=== PATIENT | male | born 1965 | race American Indian/Alaskan Native ===

== ENCOUNTER → 2020-07-23 | Day surgery (SDC) | payer OTHER ==
[2020-07-17 11:28] LABS: BASOPHIL % 1.2 % (0.2-1.5); PLATELET COUNT 251 x10^3mcL (152-348); RED CELL DISTRIBUTION WIDTH 13.3 % (12.1-16.2)
[2020-07-17 15:20] LABS: rbc morphology (normal/abnorm) NORMAL (NORMAL)
[~2020-07-23] VITALS: Ht 182.9 cm; Wt 83.0 kg
[2020-07-23] VITALS (10 sets, daily range): BP systolic 120–148; BP diastolic 83–102
[~2020-07-23] MED LIST: BRILINTA90 M1 PO; COREG6.25 M1 PO; ECO81 PO; FAMOTIDINE20 M1 PO; HORIZANT300 MG PO; HUMALOG100 U/ML SC; LANTUS100 U/ML SC; LIPITOR80 MG PO; ZES10 PO
--- NOTE | 2020-07-23 07:10 | NUR ---
ADMIT TO OPS FOR HEART CATH. ORIENT TO UNIT AND PLAN OF CARE. NPO SINCE 07/22/20 1700. AYAAN WIPES COMPLETED. BILATERAL GROIN AND WRIST SKIN PREP COMPLETED. REPORTS "PAIN 7/10 FOR LAST TWO WEEKS RADIATES TO LEFT ARM AND LEG." DENIES NAUSEA AT THIS TIME. CONSENT REVIEWED AND VERBALIZED UNDERSTANDING OF PROCEDURE. PT AMB WITH CANE. DRESSING JULES WRAP TO RIGHT KNEE FROM PREVIOUS FALL "ON TRAIN TRACKS". ALSO REPORTS "HAD ABD SURGERY NEEDS BINDER TO HOLD STOMACH IN." ABD BINDER APPLIED. PT IS DIABETIC. FBS= 246MG. PT ON INSULIN HUMALOG AND LANTUS. LAST DOSES 07/22/20. TOOK AM LISINOPRIL 20MG PO AT 0500 WITH SIP OF WATER. SIDE RAILS UP X2. CALL LIGHT IN REACH. WILL CONTINUE TO MONITOR.
--- NOTE | 2020-07-23 08:30 | NUR ---
MULTIPLE ATTEMPTS TO START IV LINE, LINES INFILTRATATED. ABLE TO ESTABLISH #20 ANGIO RIGHT HAND FLUSHED AND PATENT BY NUR1. STAT PREOP LABS DRAWN AWAITING RESULTS. PT ALLERGIC TO CONTRAST DYE, ARMBAND APPLIED.
--- NOTE | 2020-07-23 08:50 | NUR ---
PT TAKEN TO HEMODIALYSIS PATIENT CARE SPECIALIST VIA [facility].
[2020-07-23 09:45] LABS: CALCIUM 9.7 mg/dL (8.5-10.1); CARBON DIOXIDE 27.2 mmol/L (21-32); CHLORIDE SERUM 102 mmol/L (98-107); CREATININE SERUM 1.3 mg/dL (0.7-1.3); GFR1 > 60 mL/min; GLUCOSE SERUM 254 mg/dL (74-106); POTASSIUM SERUM 4.7 mmol/L (3.5-5.1); SODIUM SERUM 139 mmol/L (136-145)
--- NOTE | 2020-07-23 10:15 | NUR ---
PT RETURNED TO OPS VIA GURNEY FROM FLIGHT ATTENDANT/INFLIGHT SUPERVISOR DROWSY BUT AWAKE AND ALERT. VITAL SIGNS STABLE. SEE FLOWSHEET. CONTINUES TO REPORT SOME "CHEST PAIN LIKE BEFORE". 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 RESP 18 EVEN. PULSE OX 100% RA. RIGHT GROIN TEGADERM INTACT. NO BLEEDING OR HEMATOMA NOTED. PEDAL PULSES PRESENT. DENIES NUMBNESS OR TINGLING TO RLE. IV CONTINUES 75CC/HR ORDERED. SIDE RAILS UP X2. CALL LIGHT IN REACH.
--- NOTE | 2020-07-23 11:30 | NUR ---
VITAL SIGNS AND CIRCULATION CHECKS REMAIN STABLE. SEE FLOWSHEET. NO BLEEDING RIGHT GROIN OR HEMATOMA NOTED, PULSES PRESENT. CALL LIGHT IN REACH. BREAKFAST SERVED. CALL LIGHT IN REACH.
--- NOTE | 2020-07-23 15:00 | NUR ---
VITAL SIGNS REMAIN STABLE WITH CIRCULATION CHECKS STABLE. SEE VS FLOWSHEET. PHYSICAL THERAPY HERE TO REVIEW CARDIAC REHAB INSTRUCTIONS AND AMB WITH CANE. TOLERATED WELL, BACK TO [facility]. RIGHT GROIN SITE REMAINS STABLE NO HEMATOMA.
--- NOTE | 2020-07-23 16:30 | NUR ---
VITAL SIGNS AND CIRCULATION CHECKS TO RLE STABLE. NO HEMATOMA NOTED RIGHT GROIN DRESSING TEGADERM CDI. PULSES PRESENT. REVIEWED DISCHARGE INSTRUCTIONS RELATED TO DIET, ACTIVITY, MEDICATIONS AND FOLLOWUP APPOINTMENT INCLUDING PCP AND CARDIAC REHAB RECOMMENDATION BY DR SANCHEZ. PT VERBALIZED UNDERSTANDING. IV REMOVED CATH TIP INTACT. ARMBAND REMOVED. PT DC VIA WHEELCHAIR WITH BELONGINGS TO PRIVATE CAR.
== END | disposition home or self-care (01) ==
LOC: OR 07:10
PROVIDERS: ATTEND Internal Medicine Geriatric Medicine
DX: I25.10 Atherosclerotic heart disease of native coronary artery without angina pectoris (principal); R07.9 Chest pain, unspecified; I10 Essential (primary) hypertension; H40.9 Unspecified glaucoma; E11.9 Type 2 diabetes mellitus without complications; R56.9 Unspecified convulsions; M19.90 Unspecified osteoarthritis, unspecified site; Z79.899 Other long term (current) drug therapy; Z79.84 Long term (current) use of oral hypoglycemic drugs; Z86.73 Personal history of transient ischemic attack (TIA), and cerebral infarction without residual deficits; Z20.828 Contact with and (suspected) exposure to other viral communicable diseases
CPT/HCPCS: CLHCL; J1200; J1644; J2001; J2250; J2405; J2930; J3010; Q9967; U0003

== ENCOUNTER 2020-07-27 07:05 | Inpatient (IN) | payer OTHER ==
[~2020-07-27] VITALS: Ht 182.9 cm; Wt 82.1 kg
[2020-07-27 07:13] VITALS: Ht 182.9 cm; Wt 82.1 kg
[2020-07-27 08:25] LABS: BASOPHIL % 0.7 % (0.2-1.5); PLATELET COUNT 187 x10^3mcL (152-348); RED CELL DISTRIBUTION WIDTH 13.2 % (12.1-16.2)
[2020-07-27 08:27] LABS: rbc morphology (normal/abnorm) NORMAL (NORMAL)
[2020-07-27 08:48] LABS: CALCIUM 9.9 mg/dL (8.5-10.1); CARBON DIOXIDE 29.2 mmol/L (21-32); CHLORIDE SERUM 101 mmol/L (98-107); CREATININE SERUM 1.1 mg/dL (0.7-1.3); GFR1 > 60 mL/min; GLUCOSE SERUM 300 mg/dL (74-106); SODIUM SERUM 136 mmol/L (136-145)
[2020-07-27 08:53] LABS: ALBUMIN 3.4 g/dL (3.4-5.0); ALKALINE PHOSPHATASE 154 U/L (46-116); ALT/SGPT 28 U/L (16-63); AST/SGOT 14 U/L (15-37); BILIRUBIN TOTAL 0.3 mg/dL (0.20-1.00); TOTAL PROTEIN, SERUM 6.6 g/dL (6.4-8.2)
[2020-07-27] MEDS ORDERED: HORIZANT300 MG PO (13:25)
[2020-07-27] MEDS ORDERED: ZES10 PO (13:26)
[2020-07-27] MEDS ORDERED: FAMOTIDINE20 M1 PO (13:26)
[2020-07-27] MEDS ORDERED: BRILINTA90 M1 PO (13:27)
[2020-07-27] MEDS ORDERED: COREG6.25 M1 PO (13:27)
[2020-07-27] MEDS ORDERED: HUMALOG100 U/ML SC (13:28)
[2020-07-27] MEDS ORDERED: LANTUS100 U/ML SC (13:28)
[2020-07-28 00:48] VITALS: BP 123/80
[2020-07-28 04:51] VITALS: BP 114/77
[2020-07-28 07:33] LABS: BASOPHIL % 0.5 % (0.2-1.5); PLATELET COUNT 173 x10^3mcL (152-348); RED CELL DISTRIBUTION WIDTH 13.1 % (12.1-16.2)
[2020-07-28 09:07] VITALS: BP 108/63
[2020-07-28 09:53] LABS: rbc morphology (normal/abnorm) NORMAL (NORMAL)
[2020-07-28 11:05] LABS: ALKALINE PHOSPHATASE 101 U/L (46-116); ALT/SGPT 27 U/L (16-63); AST/SGOT 16 U/L (15-37); BILIRUBIN TOTAL 0.34 mg/dL (0.20-1.00); CALCIUM 8.3 mg/dL (8.5-10.1); CARBON DIOXIDE 26.1 mmol/L (21-32); CHLORIDE SERUM 103 mmol/L (98-107); CREATININE SERUM 0.8 mg/dL (0.7-1.3); GFR1 > 60 mL/min; GLUCOSE SERUM 197 mg/dL (74-106); POTASSIUM SERUM 3.8 mmol/L (3.5-5.1); SODIUM SERUM 137 mmol/L (136-145)
[2020-07-28 12:59] VITALS: BP 132/84
[2020-07-28 17:43] VITALS: BP 128/85
[2020-07-28 20:53] VITALS: BP 134/91
[2020-07-29 04:51] VITALS: BP 130/77
[2020-07-29 08:15] LABS: ALKALINE PHOSPHATASE 108 U/L (46-116); ALT/SGPT 26 U/L (16-63); AST/SGOT 18 U/L (15-37); BILIRUBIN TOTAL 0.5 mg/dL (0.20-1.00); CALCIUM 8.2 mg/dL (8.5-10.1); CHLORIDE SERUM 103 mmol/L (98-107); CREATININE SERUM 0.9 mg/dL (0.7-1.3); GFR1 > 60 mL/min; GLUCOSE SERUM 216 mg/dL (74-106); SODIUM SERUM 138 mmol/L (136-145); TOTAL PROTEIN, SERUM 6.6 g/dL (6.4-8.2)
[2020-07-29 08:17] LABS: ALBUMIN 3.3 g/dL (3.4-5.0)
[2020-07-29 09:29] VITALS: BP 143/86
[2020-07-29 11:00] VITALS: BP 136/86
[2020-07-29] MEDS ORDERED: LIPITOR80 MG PO (11:56)
[2020-07-29] MEDS ORDERED: ECO81 PO (11:58)
[2020-07-29 12:03] VITALS: BP 136/86
[2020-07-29 13:21] VITALS: BP 136/86
[2020-07-29 14:15] LABS: BASOPHIL % 0.8 % (0.2-1.5); PLATELET COUNT 192 x10^3mcL (152-348); RED CELL DISTRIBUTION WIDTH 13.1 % (12.1-16.2)
== END 2020-07-29 18:22 | disposition home or self-care (01) | DRG 137 ==
LOC: ED 07:05 → DU 11:27
PROVIDERS: Emergency Medicine; ADMIT Internal Medicine; ATTEND Internal Medicine
DX: U07.1 COVID-19 (principal); J12.82 Pneumonia due to coronavirus disease 2019; E78.5 Hyperlipidemia, unspecified; I10 Essential (primary) hypertension; I25.10 Atherosclerotic heart disease of native coronary artery without angina pectoris; I25.2 Old myocardial infarction; Z86.73 Personal history of transient ischemic attack (TIA), and cerebral infarction without residual deficits; G40.909 Epilepsy, unspecified, not intractable, without status epilepticus; J06.9 Acute upper respiratory infection, unspecified; Z83.3 Family history of diabetes mellitus; Z82.49 Family history of ischemic heart disease and other diseases of the circulatory system; R07.89 Other chest pain; Z88.3 Allergy status to other anti-infective agents
CPT/HCPCS: 83880; 85378; G0378; J1650; J2270; J2405; J7030; U0003